=== PATIENT | female | born 1975 | race Hispanic/Latino ===

== ENCOUNTER 2024-12-17 04:51 | Emergency (ER) | payer BC ==
[~2024-12-17] VITALS: Ht 162.6 cm; Wt 79.8 kg
[2024-12-17 04:56] VITALS: PULSE 76; RESP 18; TEMP 97.4
[2024-12-17] MEDS ORDERED: ACETAMINOPHEN 325 MG TAB PO ONE (05:30)
[2024-12-17] MEDS: ONDANSETRON HCL INJ 2MG/ML 2ML 2 MG/ML VIAL IV STA (05:54)
[2024-12-17] MEDS: FAMOTIDINE 20 MG/2 ML VIAL IV STA (05:54)
[2024-12-17] MEDS: SODIUM CHLORIDE 0.9% 1000ML 1,000 ML IV ONE (05:55)
[2024-12-17] MEDS: POTASSIUM CHLORIDE 20 MEQ TAB CR PO STA (06:18)
[2024-12-17 06:50] VITALS: BP 136/88; PULSE 72; RESP 18; TEMP 98; O2SAT 100
== END 2024-12-17 06:50 | disposition home or self-care (01) ==
LOC: FSED 05:16
DX: R51.9 Headache, unspecified (principal); E23.0 Hypopituitarism; E87.6 Hypokalemia; F41.9 Anxiety disorder, unspecified; I10 Essential (primary) hypertension; Z11.52 Encounter for screening for COVID-19; F17.210 Nicotine dependence, cigarettes, uncomplicated
CPT/HCPCS: 0223U; 70450; 80053; 85025; 87400; 93005; 96374; 96375; 99284; J1308; J2405; J7030